=== PATIENT | female | born 1975 | race Two or more races ===

== ENCOUNTER 2024-07-20 08:51 | Day surgery (SDC) | payer BC ==
[~2024-07-20 08:51] MED LIST: Sodium Chloride 0.9% 10 ML Syringe FLUSH PRN; Sodium Chloride 0.9% 2.5 ML Syringe FLUSH PRN; Sodium Chloride 0.9% 20 ML SDV IV PRN
[2024-07-20] MEDS: Lactated Ringers 1,000 ML IV SCH (09:49)
[2024-07-20] MEDS ORDERED: propofoL 500 MG/50 ML 50 ML ONE (10:31)
[2024-07-20] MEDS ORDERED: fentaNYL 100 MCG/2 ML SDV ONE (11:10)
[2024-07-20] MEDS ORDERED: Ketamine HCL/NACL, ISO-OSM 50 MG/5 ML Syringe ONE (11:11)
[2024-07-20] MEDS ORDERED: Ketamine 500 mg/10 ML MDV ONE (11:11)
[2024-07-20] MEDS ORDERED: Glycopyrrolate 0.2 MG/ML SDV ONE (11:14)
[2024-07-20] MEDS ORDERED: Lidocaine 2% 5 ML SDV ONE (11:19)
[2024-07-20] MEDS ORDERED: dexmedeTOMIDine HCl 200 MCG/2 ML SDV ONE (11:54)
[2024-07-20] MEDS ORDERED: Sodium Chloride 0.9% 20 ML ONE (11:54)
[2024-07-20] MEDS ORDERED: Phenylephrine HCl In 0.9% NaCl 1 MG/10 ML Syringe ONE (11:57)
== END 2024-07-20 12:16 | disposition home or self-care (01) ==
LOC: MW.SDS 08:51
PROVIDERS: ATTEND Surgery
DX: D50.9 Iron deficiency anemia, unspecified (principal); K29.50 Unspecified chronic gastritis without bleeding; K31.89 Other diseases of stomach and duodenum; K44.9 Diaphragmatic hernia without obstruction or gangrene; K21.9 Gastro-esophageal reflux disease without esophagitis; K82.8 Other specified diseases of gallbladder; I10 Essential (primary) hypertension; Z87.891 Personal history of nicotine dependence; Z79.899 Other long term (current) drug therapy; Z88.5 Allergy status to narcotic agent
CPT/HCPCS: 43239; 45378; 81025; J1596; J2003; J2371; J2704; J3010; J7120; 00813; J3490

== ENCOUNTER 2024-08-22 06:29 | Day surgery (SDC) | payer BC ==
[~2024-08-22 06:29] MED LIST changes: +ceFAZolin 2 GM in Water For Injection, Sterile 20 ML IVPUSH ONE
[2024-08-22] MEDS: Lactated Ringers 1,000 ML IV SCH (07:00)
[2024-08-22] MEDS ORDERED: Bupivacaine 0.5% 30 ML SDV ONE (07:24)
[2024-08-22] MEDS ORDERED: fentaNYL 250 MCG/5 ML SDV ONE (07:26)
[2024-08-22] MEDS ORDERED: propofoL 500 MG/50 ML 50 ML ONE ×2 (07:26→08:25)
[2024-08-22] MEDS ORDERED: Propofol 200 MG/20 ML SDV ONE (07:26)
[2024-08-22] MEDS ORDERED: Rocuronium Bromide 50 MG/5 ML Syringe ONE (07:30)
[2024-08-22] MEDS ORDERED: Ondansetron 4 MG/2 ML SDV ONE (07:30)
[2024-08-22] MEDS ORDERED: Dexamethasone 4 MG/ML 5 ML MDV ONE (07:30)
[2024-08-22] MEDS ORDERED: dexmedeTOMIDine HCl 200 MCG/2 ML SDV ONE (07:30)
[2024-08-22] MEDS ORDERED: Sodium Chloride 0.9% 20 ML ONE ×2 (07:31→07:37)
[2024-08-22] MEDS ORDERED: Ropivacaine 0.5% 5 MG/ML 30 ML SDV ONE (07:35)
[2024-08-22] MEDS ORDERED: Morphine 10 MG/ML SDV ONE (07:35)
[2024-08-22] MEDS ORDERED: Famotidine 20 MG/2 ML SDV ONE (07:35)
[2024-08-22] MEDS ORDERED: Lidocaine 2% 11 ML Jelly Filled Syringe ONE (07:35)
[2024-08-22] MEDS ORDERED: Metoclopramide 10 MG/2 ML SDV IVPUSH PRN (07:42)
[2024-08-22] MEDS ORDERED: fentaNYL 50 MCG/ML SDV IVPUSH PRN (07:42)
[2024-08-22] MEDS ORDERED: Morphine 2 MG/ML SYRINGE IVPUSH PRN (07:42)
[2024-08-22] MEDS ORDERED: Ondansetron 4 MG/2 ML SDV IVPUSH PRN (07:42)
[2024-08-22] MEDS ORDERED: Albuterol 0.083% 2.5 MG/3 ML Neb Soln NEB PRN (07:42)
[2024-08-22] MEDS ORDERED: HYDROmorphone 1 MG/ML Syringe IVPUSH PRN (07:42)
[2024-08-22] MEDS ORDERED: Naloxone 0.4 MG/ML SDV IVPUSH PRN (07:42)
[2024-08-22] MEDS ORDERED: Phenylephrine HCl In 0.9% NaCl 1 MG/10 ML Syringe IVPUSH PRN (07:42)
[2024-08-22] MEDS ORDERED: fentaNYL 100 MCG/2 ML SDV ONE (08:27)
[2024-08-22] MEDS ORDERED: Scopalamine 1mg/3day Transdermal Patch TOP ONE (08:30)
[2024-08-22] MEDS ORDERED: Sugammadex Sodium 200 MG/2 ML VIAL IV ONE (08:44)
[2024-08-22] MEDS ORDERED: Ketorolac 30 MG/ML SDV ONE (08:50)
[2024-08-22] MEDS: diphenhydrAMINE 50 MG/ML SDV IVPUSH ONE (10:13)
[2024-08-22] MEDS: diphenhydrAMINE 50 MG/ML SDV ONE (10:19)
== END 2024-08-22 12:30 | disposition home or self-care (01) ==
LOC: MW.SDS 06:29
PROVIDERS: ATTEND Surgery
DX: K80.10 Calculus of gallbladder with chronic cholecystitis without obstruction (principal); K21.9 Gastro-esophageal reflux disease without esophagitis; K44.9 Diaphragmatic hernia without obstruction or gangrene; Z79.899 Other long term (current) drug therapy; Z88.5 Allergy status to narcotic agent; Z88.8 Allergy status to other drugs, medicaments and biological substances; Z91.09 Other allergy status, other than to drugs and biological substances
CPT/HCPCS: 47562; 64488; 81025; A9270; J0665; J1100; J1200; J1885; J2272; J2704; J2795; J3010; J7120; 00790; J2405; J3490

== ENCOUNTER 2024-08-22 18:37 | Emergency (ER) | payer BC ==
[2024-08-22] MEDS ORDERED: Sodium Chloride 0.9% 10 ML Syringe FLUSH PRN (19:13)
[2024-08-22] MEDS ORDERED: Sodium Chloride 0.9% 2.5 ML Syringe FLUSH PRN (19:13)
[2024-08-22] MEDS ORDERED: Sodium Chloride 0.9% 20 ML SDV IV PRN (19:13)
[2024-08-22 19:24] LABS: BASOPHILS ABSOLUTE AUTO 0.01 K/uL (0.00-0.20); BASOPHILS PERCENT AUTO 0.1 % (0.0-1.0); EOSINOPHILS ABSOLUTE AUTO 0.01 K/uL (0.00-0.45); EOSINOPHILS PERCENT AUTO 0.1 % (0.0-6.0); HEMATOCRIT 36.6 % (37.0-47.0); HEMOGLOBIN 11.1 g/dL (12.0-16.0); IMMATURE GRAN ABSOLUTE AUTO 0.06 K/uL (0.00-0.05); IMMATURE GRAN PERCENT AUTO 0.6 % (0.0-0.4); LYMPHOCYTES ABSOLUTE AUTO 0.45 K/uL (1.00-4.80); LYMPHOCYTES PERCENT AUTO 4.2 % (24.0-44.0); MEAN CORPUSCULAR HEMOGLOBIN 23.3 pg (28.0-32.0); MEAN CORPUSCULAR HGB CONC 30.3 g/dL (32.0-36.0); MEAN CORPUSCULAR VOLUME 76.9 fL (83.0-99.0); MEAN PLATELET VOLUME 10.3 fL (9.4-12.3); MONOCYTES PERCENT AUTO 1.9 % (0.0-8.0); NEUTROPHILS ABSOLUTE AUTO 9.99 K/uL (1.80-7.70); NEUTROPHILS PERCENT AUTO 93.1 % (41.0-71.0); PLATELET COUNT,PLT 276 K/uL (150-400); RED BLOOD CELL COUNT 4.76 M/uL (4.10-5.30); WHITE BLOOD CELL COUNT,WBC 10.72 K/uL (3.9-11.3)
[2024-08-22 19:44] LABS: ALANINE AMINOTRANSFERASE,ALT 38 IU/L (14-63); ALBUMIN 3.8 g/dL (3.4-5.0); ALKALINE PHOSPHATASE 111 U/L (46-116); ASPARTATE AMNIOTRANSFERASE,AST 33 IU/L (15-37); BILIRUBIN TOTAL 0.3 mg/dL (0.2-1.0); BLOOD UREA NITROGEN,BUN 12 mg/dL (7.0-18.0); CALCIUM 8.8 mg/dL (8.5-10.1); CARBON DIOXIDE,CO2 27.8 mmol/L (21.0-32.0); CHLORIDE,CL 103 mmol/L (98-107); CREATININE 0.8 mg/dL (0.6-1.0); GLUCOSE RANDOM 162 mg/dL (74-106); LIPASE 18 U/L (16-77); MAGNESIUM 2.1 mg/dL (1.8-2.4); POTASSIUM,K 4.9 mmol/L (3.5-5.1); PROTEIN TOTAL,TP 7.6 g/dL (6.4-8.2); SODIUM,NA 137 mmol/L (136-145)
[2024-08-22 19:46] LABS: ESTIMATED GFR 90 mL/min (>60)
[2024-08-22] MEDS: Ondansetron 4 MG/2 ML SDV IVPUSH ONE (19:52)
[2024-08-22] MEDS: Sodium Chloride 0.9% 1,000 ML IV ONE (19:52)
[2024-08-22] MEDS: Acetaminophen 500 MG Tab PO ONE (20:55)
[2024-08-22] MEDS: METOCLOPRAMIDE PO ONE (21:21)
[2024-08-22] MEDS: SIMETHICONE PO ONE (21:21)
[2024-08-22] MEDS: MAGNESIUM HYDROXIDE PO ONE (21:21)
[2024-08-22] MEDS: ALUMINUM HYDROXIDE PO ONE (21:21)
== END 2024-08-22 21:50 | disposition home or self-care (01) ==
LOC: MW.ED 18:37
DX: R11.2 Nausea with vomiting, unspecified (principal); Z91.048 Other nonmedicinal substance allergy status; Z88.5 Allergy status to narcotic agent; Z88.8 Allergy status to other drugs, medicaments and biological substances; Z79.899 Other long term (current) drug therapy; Z90.49 Acquired absence of other specified parts of digestive tract
CPT/HCPCS: 36415; 74176; 80053; 83690; 83735; 85025; 96361; 96374; 99284; A9270; J2405; J7030; 99283

== ENCOUNTER 2024-09-10 18:43 | Emergency (ER) | payer BC ==
[2024-09-10 18:54] LABS: BASOPHILS ABSOLUTE AUTO 0.05 K/uL (0.00-0.20); BASOPHILS PERCENT AUTO 0.4 % (0.0-1.0); EOSINOPHILS ABSOLUTE AUTO 0.22 K/uL (0.00-0.45); EOSINOPHILS PERCENT AUTO 1.6 % (0.0-6.0); IMMATURE GRAN ABSOLUTE AUTO 0.04 K/uL (0.00-0.05); IMMATURE GRAN PERCENT AUTO 0.3 % (0.0-0.4); LYMPHOCYTES ABSOLUTE AUTO 3.40 K/uL (1.00-4.80); LYMPHOCYTES PERCENT AUTO 24.4 % (24.0-44.0); MEAN PLATELET VOLUME 10.8 fL (9.4-12.3); MONOCYTES ABSOLUTE AUTO 1.01 K/uL (0.00-0.80); MONOCYTES PERCENT AUTO 7.2 % (0.0-8.0); NEUTROPHILS ABSOLUTE AUTO 9.22 K/uL (1.80-7.70); NEUTROPHILS PERCENT AUTO 66.1 % (41.0-71.0); NRBC ABSOLUTE 0.00 K/uL (0.00-0.02); NRBC PERCENT 0.0 /100WBC (0.0-0.2); PLATELET COUNT,PLT 381 K/uL (150-400); RED BLOOD CELL COUNT 5.10 M/uL (4.10-5.30); WHITE BLOOD CELL COUNT,WBC 13.94 K/uL (3.9-11.3)
[2024-09-10 19:10] LABS: INR < 0.93 (0.86-1.11)
[2024-09-10] MEDS: Iopamidol 755 MG/ML 500 ML Multipack Bottle IVPUSH STA (19:12)
[2024-09-10 19:16] LABS: A/G RATIO 1.0 (0.9-1.6); ALANINE AMINOTRANSFERASE,ALT 44 IU/L (14-63); ASPARTATE AMNIOTRANSFERASE,AST 29 IU/L (15-37); BILIRUBIN TOTAL 0.3 mg/dL (0.2-1.0); BLOOD UREA NITROGEN,BUN 11 mg/dL (7.0-18.0); CARBON DIOXIDE,CO2 24.4 mmol/L (21.0-32.0); CHLORIDE,CL 103 mmol/L (98-107); CREATININE 1.1 mg/dL (0.6-1.0); ESTIMATED GFR 62 mL/min (>60); ETHANOL BLOOD MEDICAL <3 mg/dL; GLUCOSE RANDOM 105 mg/dL (74-106); POTASSIUM,K 4.2 mmol/L (3.5-5.1); PROTEIN TOTAL,TP 8.0 g/dL (6.4-8.2); SODIUM,NA 142 mmol/L (136-145)
[2024-09-10] MEDS: Lidocaine 1% with EPINEPHrine 1:100,000 10 ML MDV INFILT ONE (19:19)
[2024-09-10] MEDS: Lidocaine 1% with EPINEPHrine 1:200,000 30 ML SDV INJECT ONE (19:20)
[2024-09-10] MEDS: Diphtheria,Pertussis(Acell),Tetanus Vaccine 0.5 ML Syringe IM ONE (19:24)
[2024-09-10] MEDS: Ondansetron 4 MG/2 ML SDV IVPUSH ONE (19:24)
[2024-09-10] MEDS: Bacitracin Oint 1 GM U/D Packet TOP ONE (20:40)
[2024-09-10] MEDS: Ketorolac 30 MG/ML SDV IVPUSH ONE (20:41)
== END 2024-09-10 20:45 | disposition home or self-care (01) ==
LOC: MW.ED 18:43
DX: S02.2XXA Fracture of nasal bones, initial encounter for closed fracture (principal); S01.81XA Laceration without foreign body of other part of head, initial encounter; I10 Essential (primary) hypertension; Z91.048 Other nonmedicinal substance allergy status; Z88.5 Allergy status to narcotic agent; Z88.8 Allergy status to other drugs, medicaments and biological substances; Z23 Encounter for immunization; V86.56XA Driver of dirt bike or motor/cross bike injured in nontraffic accident, initial encounter; Y93.89 Activity, other specified
CPT/HCPCS: 12013; 36415; 70450; 70486; 70498; 72125; 80053; 80307; 83690; 85025; 85610; 90471; 90715; 99284; A9270; Q9967; J3490